=== PATIENT | female | born 1970 | race Caucasian/White ===

== ENCOUNTER 2018-12-09 09:22 | Inpatient (IN) ==
[2018-12-09] MEDS ORDERED: SODIUM CHLORIDE 0.9% INJ ONE ×2 (10:16→10:20)
[2018-12-09] MEDS ORDERED: ZOFRAN IV ONE (10:18)
[2018-12-09] MEDS ORDERED: D5 1/2 NS + KCL 40 MEQ 1,000 ML IV ONE (10:22)
[2018-12-09] MEDS ORDERED: PROTONIX IV SCH (10:30)
[2018-12-09] MEDS: PHENERGAN IV PRN ×3 (10:44→18:52)
--- NOTE | 2018-12-09 10:46 | Diag Imaging Result Doc PS360 ---
EXAM: FLAT/UPRIGHT ABD/1 VIEW CHEST - 12/09/2018 HISTORY: nausea and vomiting TECHNIQUE: Supine and upright abdomen and one view chest COMPARISON: 10/23/2018 KUB abdomen, 10/18/2018 portable chest FINDINGS: The bowel gas pattern appears nonspecific and nonobstructive. There is no free air identified. There are surgical clips at the right upper quadrant and midabdomen. Upright chest shows normal heart size. The lungs appear clear. There is chronic blunting of the left costophrenic sulcus. There is no acute pleural effusion or pneumothorax identified. There are old left mid rib fracture deformities noted. IMPRESSION: Nonspecific bowel gas pattern. No evidence of acute cardiopulmonary disease. Electronically signed by Shahid Whitehead 12/09/2018 10:43 AM
--- NOTE | 2018-12-09 11:31 | ED EKG INTERP ---
EKG Interpretation - EKG Time of EKG reading by physician:: 10:38 EKG Read and Signed by:: Antony Ventura EKG Interpretation (*Must complete 3 of following elements*): Abnormal Rate: 89 Rhythm: NSR [place]: normal QRS: LVH (minimal voltage criteria), other (R atrial enlargement) TN Interval: normal ST Wave: depressed (junctional) Attestation - Physician/ LUIS Attestation Patient care was provided by Advanced Practice Provider:: No The physician spent face to face time with patient:: No Advanced Practice Provider documentation review:: Supervising physician onsite and consulted in the evaluation and care of this patient. The physician did not have a face to face encounter with the patient.
[2018-12-09 11:50] LABS: BASO# 0.01 X1000 (0.0-0.2); BASO% 0.1 % (0.0-0.8); EOS# 0.01 X1000 (0.0-0.7); EOS% 0.1 % (0.0-10.0); HEMATOCRIT 44.2 % (37.0-47.0); HEMOGLOBIN 15.2 g/dL (12.0-16.0); IMM GRAN# 0.03 X1000 (0.0-0.04); IMM GRAN% 0.2 % (0.0-0.5); LYMPH# 2.79 X1000 (1.2-3.4); LYMPH% 17.1 % (20.5-51.1); MCH 29.5 PG (27-31); MCHC 34.4 g/dL (33-37); MCV 85.7 FL (81-99); MONO# 0.66 X1000 (0.11-0.59); MONO% 4.1 % (1.7-9.3); MPV 10.9 FL (7.4-10.4); NEUT# 12.79 X1000 (1.4-6.5); NEUT% 78.4 % (42.2-75.2); PLT 291 X1000 (130-400); RBC 5.16 XMIL (4.2-5.4); RDW 14.8 % (11.5-14.5); WBC 16.29 X1000 (4.8-10.8)
[2018-12-09] MEDS ORDERED: SODIUM CHLORIDE 0.9% INJ PRN (12:00)
[2018-12-09] MEDS: MORPHINE IV PRN ×6 (12:09→23:20)
[2018-12-09 12:10] LABS: AGAP 18; ALB/GLOB RATIO 1.4; ALBUMIN 4.4 g/dL (3.5-5.0); ALKALINE PHOSPHATASE 159 U/L (32-104); BUN 23 mg/dL (8-22); CALCIUM 9.3 mg/dL (8.8-10.2); CHLORIDE 98 mmol/L (98-107); COSMO 279; CREATININE 0.7 mg/dL (0.5-0.9); ESTIMATED GFR > 60; GLUCOSE 100 mg/dL (70-104); GOT 37 U/L (10-30); GPT 53 U/L (10-36); POTASSIUM 3.2 mmol/L (3.5-5.1); SODIUM 138 mmol/L (136-145); TCO2 22 mmol/L (25-35); TOTAL PROTEIN 7.5 g/dL (6.3-8.3)
[2018-12-09] MEDS: D5 1/2 NS + KCL 20 MEQ 1,000 ML IV SCH ×2 (12:10→21:09)
[2018-12-09] MEDS: KEFZOL 1 GM/D5W 1 GM/50 ML IVPB IV SCH ×2 (12:21→21:09)
[2018-12-09] MEDS: ZOFRAN IV PRN ×2 (17:05→21:10)
--- NOTE | 2018-12-09 20:13 | GENERAL SURGERY CONSULTATION ---
DATE: 12/09/2018 HISTORY OF PRESENT ILLNESS: A 48-year-old female patient of Dr. Foster's, also known to Dr. Guan, who underwent a mesenteric bypass for chronic mesenteric ischemia on October 30. She had a long hospital course and has been overall doing okay. She has been home, but developed some back pain, nausea, decreased appetite and bringing her back to the emergency department where she was found to be quite dehydrated. She is hemodynamically stable. No fevers. She is tachycardic initially, with fluids it decreased down to 85. MEDICAL HISTORY: Peripheral vascular disease, mesenteric ischemia, hypertension, chronic tobacco use. SURGICAL HISTORY: Cholecystectomy as well as an aorta to SMA bypass and aorta to celiac bypass. SOCIAL HISTORY: Tobacco use. FAMILY HISTORY: Reviewed, noncontributory. REVIEW OF SYSTEMS: 10 point negative other than HPI PHYSICAL EXAMINATION: Vital Signs: This morning temp was 99.3, pulse 88, blood pressure 160/94. Oxygen saturation 97%. She is approx 100 pounds, or 5 feet 4 inches. General: She is alert, no acute distress. HEENT: There is no scleral icterus. No cervical mass. Cardiovascular: Normal rate. Pulmonary: No increased work of breathing. Abdomen: Soft, nontender, nondistended. Midline incision is well healed. Integument: Warm, dry. Musculoskeletal: Significant cachexia. LABORATORY: White count 16, hematocrit 44, platelets 29,000. Creatinine is 0.7 with an elevated BUN at 23, bilirubin 0.90. AST, ALT and alkaline phosphatase mildly elevated at 37, 53 and 159. Albumin is 4.1. She has a plain film abdominal x-ray that shows no free air. No obvious bowel obstruction. ASSESSMENT AND PLAN: A 48-year-old female with status post mesenteric bypass. She is presenting back now with dehydration. Her abdominal exam is benign. She is hemodynamically stable. She does look hemoconcentrated on her exam. We will follow up from a vascular standpoint. Dr. Guan plans to hydrate her and obtain a scan in the near future. I will let Dr. Foster know, he will be back tomorrow. Otherwise, we will keep her n.p.o., IV hydration. She has had what sounds like normal bowel function leading up to this. cc: MD Didier Stewart, MD [facility]
[2018-12-10] MEDS: MORPHINE IV PRN ×10 (03:08→23:55)
[2018-12-10] MEDS: SODIUM CHLORIDE 0.9% INJ PRN ×4 (03:09→16:59)
[2018-12-10] MEDS: PHENERGAN IV PRN ×5 (03:09→21:14)
[2018-12-10 03:22] LABS: URINE SOURCE CLEAN CATCH
[2018-12-10] MEDS: KEFZOL 1 GM/D5W 1 GM/50 ML IVPB IV SCH ×3 (04:04→20:40)
[2018-12-10 04:28] LABS: BILIRUBIN URINE NEGATIVE (NEGATIVE); BLOOD URINE NEGATIVE (NEGATIVE); COLOR YELLOW; GLUCOSE URINE NEGATIVE (NEGATIVE); KETONE URINE TRACE mg/dL (NEGATIVE); LEUKOCYTES URINE NEGATIVE (NEGATIVE); NITRITE URINE NEGATIVE (NEGATIVE); PROTEIN URINE NEGATIVE (NEGATIVE); SP GRAVITY URINE 1.007; TURBIDITY URINE CLEAR (CLEAR); UROBILINOGEN URINE NORMAL (NORMAL)
[2018-12-10 04:29] LABS: URINE WBC <10 /HPF (<10)
[2018-12-10 04:30] LABS: UR EPITHELIAL CELLS <10 /HPF (<10); URINE BACTERIA NEGATIVE /HPF; URINE RBC <10 /HPF (<10)
[2018-12-10] MEDS: PROTONIX PO SCH ×2 (05:46→06:38)
[2018-12-10] MEDS: ZOFRAN IV PRN ×5 (05:46→23:55)
[2018-12-10] MEDS: D5 1/2 NS + KCL 20 MEQ 1,000 ML IV SCH ×2 (06:14→14:43)
--- NOTE | 2018-12-10 07:06 | EKG Report ---
Test Performed on : 12/09/2018 10:38:22 AM Test Reason : nausia and vomiting Blood Pressure : / mmHG Vent. Rate : 089 BPM Atrial Rate : 089 BPM P-R Int : 112 ms QRS Dur : 070 ms QT Int : 382 ms P-R-T Axes : 082 001 020 degrees QTc Int : 464 ms Normal sinus rhythm. Right atrial enlargement Minimal voltage criteria for LVH, may be normal variant Junctional ST depression, probably abnormal Abnormal ECG When compared with ECG of 17-OCT-2018 14:04, ST now depressed in Inferior leads Nonspecific T wave abnormality now evident in Inferior leads Unconfirmed Result
--- NOTE | 2018-12-10 12:32 | Diag Imaging Result Doc PS360 ---
EXAM: CT ABD/PELVIS W/PO AND IV CON 12/10/2018 HISTORY: back and abd abd pain TECHNIQUE: This exam was performed using automated exposure control, adjustment of mA or kV according to patient size, and/or use of iterative reconstruction technique. COMMENT: There is a fibrotic scar in the lateral costophrenic sulcus of the left lower lobe. This was present at the time the previous study of 10/23/2018. There are some atherosclerotic calcifications in the abdominal aorta and iliac arteries. There is no evidence of aneurysm. There is a patent graft between the infrarenal abdominal aorta and the superior mesenteric artery. The proximal [place] superior mesenteric artery is occluded. There is also an apparent graft between the upper abdominal aorta and the splenic artery through which there is filling of the celiac, as the ostium of the celiac artery is also apparently occluded. This graft is also patent. The inferior mesenteric artery is apparently patent. Both common iliac arteries are patent. There is mucosal thickening of the ascending colon, the transverse colon and the upper descending colon. This was not clearly the case at the time the previous study. Pelvis: There is stool in the rectosigmoid colon. There is no evidence of free fluid. There is a cyst in the right ovary measuring 1.6 cm. There is a pelvic kidney on the left. 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 There is no evidence of acute bony abnormality. IMPRESSION: Patent grafts supplying the celiac and superior mesenteric arteries. Apparent colitis which may, nevertheless,be related to ischemia. Otherwise stable since 10/23/2018. Electronically signed by Duke Rosenberg 12/10/2018 12:30 PM
--- NOTE | 2018-12-10 16:16 | GENERAL SURGERY PROGRESS NOTE ---
DATE: 12/10/2018 Ms. Mccormick was admitted with some nausea/vomiting and some back pain. She is afebrile with stable hemodynamics. Her white count is 16,,300. AST, ALT, alkaline phosphatase are all mildly elevated. Her CTA shows patent grafts to her celiac branches as well as her SMA. There is apparent mucosal thickening in her colon. She appears to have colitis. Her grafts, however, are patent. I did not have any recommendations regarding her flow. I will continue to empirically treat her for colitis and see if she will not improve after appropriate antibiotic therapy. She may come to colonoscopy. cc: MD Didier aEson MD
[2018-12-10] MEDS: FLAGYL 500 MG/NS 500 MG/100 ML IVPB IV SCH ×2 (16:59→21:14)
[2018-12-10] MEDS: NORCO-5 PO PRN (22:23)
[2018-12-11] MEDS: D5 1/2 NS + KCL 20 MEQ 1,000 ML IV SCH ×2 (01:59→06:42)
[2018-12-11] MEDS: MORPHINE IV PRN ×10 (01:59→22:42)
[2018-12-11] MEDS: PHENERGAN IV PRN ×5 (02:00→20:34)
[2018-12-11] MEDS: NORCO-5 PO PRN ×2 (03:15→19:48)
[2018-12-11] MEDS: FLAGYL 500 MG/NS 500 MG/100 ML IVPB IV SCH ×4 (03:16→22:00)
[2018-12-11] MEDS: ZOFRAN IV PRN ×5 (04:04→22:42)
[2018-12-11] MEDS: KEFZOL 1 GM/D5W 1 GM/50 ML IVPB IV SCH ×3 (04:04→20:34)
[2018-12-11] MEDS: PROTONIX PO SCH (06:26)
[2018-12-11 06:50] LABS: AGAP 9; ALB/GLOB RATIO 1.5; ALBUMIN 3.3 g/dL (3.5-5.0); ALKALINE PHOSPHATASE 108 U/L (32-104); BUN 4 mg/dL (8-22); CHLORIDE 110 mmol/L (98-107); COSMO 279; CREATININE 0.7 mg/dL (0.5-0.9); ESTIMATED GFR > 60; GLUCOSE 89 mg/dL (70-104); GOT 23 U/L (10-30); GPT 31 U/L (10-36); SODIUM 142 mmol/L (136-145); TCO2 23 mmol/L (25-35); TOTAL BILIRUBIN 0.19 mg/dL (0.20-1.00); TOTAL PROTEIN 5.5 g/dL (6.3-8.3)
[2018-12-11 06:57] LABS: BASO# 0.02 X1000 (0.0-0.2); BASO% 0.3 % (0.0-0.8); EOS# 0.42 X1000 (0.0-0.7); EOS% 5.6 % (0.0-10.0); HEMATOCRIT 36.6 % (37.0-47.0); HEMOGLOBIN 12.2 g/dL (12.0-16.0); LYMPH# 2.57 X1000 (1.2-3.4); MCH 30.2 PG (27-31); MCHC 33.3 g/dL (33-37); MCV 90.6 FL (81-99); MONO# 0.63 X1000 (0.11-0.59); MONO% 8.3 % (1.7-9.3); MPV 11.5 FL (7.4-10.4); NEUT# 3.92 X1000 (1.4-6.5); NEUT% 51.8 % (42.2-75.2); PLT 195 X1000 (130-400); RBC 4.04 XMIL (4.2-5.4); RDW 14.9 % (11.5-14.5); WBC 7.56 X1000 (4.8-10.8)
[2018-12-11] MEDS: D5 1/2 NS + KCL 30 MEQ 1,000 ML IV SCH ×2 (10:26→19:53)
--- NOTE | 2018-12-11 19:29 | GASTROENTEROLOGY CONSULTATION ---
DATE: 12/11/2018 REASON FOR CONSULT: Colitis, nausea, vomiting, diarrhea. HISTORY OF PRESENT ILLNESS: Ms. Davion Mccormick is a 48-year-old woman with past medical history of GERD, hypertension, peptic ulcer disease, tobacco abuse, who was recently admitted in October of this year and found to have chronic mesenteric ischemia, status post open superior mesenteric artery bypass and aortic to celiac artery bypass who presents with 5 days of intractable nausea, vomiting and fever of 200 degrees at home. She reports associated lower abdominal cramping and developed nonbloody diarrhea today. She says her emesis has been nonbloody. She denies any sick contacts, changes in her diet or medications that may of aggravated her symptoms. Her nausea and vomiting has improved since being admitted with antiemetics including Phenergan and Zofran. She says since her surgery, her abdominal pain from her surgery has been slowly improving. She was gaining weight until her symptoms started this past . REVIEW OF SYSTEMS: The rest of her GI systems is negative. PAST MEDICAL HISTORY: As per HPI. PAST SURGICAL HISTORY: SMA and celiac bypass, cholecystectomy. SOCIAL HISTORY: She quit smoking cigarettes now vapes at this point. No alcohol or drug use. FAMILY HISTORY: She says her brother had colon cancer. Father may have had colon cancer. Her last colonoscopy was in 2018. MEDICATIONS: She is on Protonix, Tylenol, and [place]. She was on a 30 day course of Plavix, which she completed. ALLERGIES: No allergies to medications. PHYSICAL EXAMINATION: Vital Signs: Temperature of 98.2, heart rate of 70, respiratory rate 16, blood pressure 125/62, O2 saturation 100% on room air. General: The patient is awake, alert, oriented, in no acute distress. She looks like she has gained some weight since the last time I saw her. Well-nourished. HEENT: Sclerae anicteric. Moist mucous membranes. Neck: No JVD or lymphadenopathy. Cardiac: Regular rate and rhythm. No murmurs, rubs, or gallops. Lungs: Clear to auscultation bilaterally. No wheezing. Abdomen: Postsurgical scars well healed. Abdomen is nondistended. Normoactive bowel sounds. No rebound or guarding. Minimal tenderness throughout. No ascites. Extremities: No clubbing, cyanosis, or edema. Neurologic: Nonfocal. LABORATORY DATA: White count on presentation was 16.2, currently 7.5, hemoglobin of 12.2 from 15.2 on admission, platelets of 195,000. Sodium 142, potassium of 3.0, chloride of 110, bicarbonate 23, BUN of 4, creatinine 0.7. LFTs, total bilirubin 0.19, AST of 323, ALT of 31, alkaline phosphatase of 108, total protein of 5.5, albumin 3.3. UA is negative IMAGING: Abdominal x-ray shows nonspecific bowel gas pattern. CT of the abdomen and pelvis with p.o. and IV contrast shows patent grafts supplying the celiac and superior mesenteric arteries. Apparent colitis in the ascending, transverse and upper descending colon that was not seen on prior study. Stool, clostridium difficile is negative. ASSESSMENT AND PLAN: Ms. Davion Mccormick is a 48-year-old woman with past medical history of peptic ulcer disease, gastroesophageal reflux disease, tobacco abuse, peripheral artery disease, history of chronic mesenteric ischemia, status post celiac and SMA bypass, who presents with acute onset nausea, vomiting, diarrhea concerning for probable gastroenteritis. Her white count was elevated on presentation, which is now improved. Her clostridium difficile is negative. Her abdomen is benign. Vital signs are stable. Her symptoms have improved with antiemetics as well as antibiotics. She is on cefazolin and Flagyl for nausea and vomiting. Continue antiemetics for diarrhea. Follow up stool studies. Continue Flagyl for now. Consider changing cefazolin to Cipro. Can transition to oral medications. Advance diet as tolerated. Replete electrolytes. Intravenous fluids. Thank you for this consult. We will follow with you. Please call with any questions or concerns. cc: Didier Guan MD
[2018-12-12] MEDS: MORPHINE IV PRN ×8 (01:18→21:35)
[2018-12-12] MEDS: NORCO-5 PO PRN ×3 (01:19→21:35)
[2018-12-12] MEDS: PHENERGAN IV PRN ×4 (01:19→18:54)
[2018-12-12] MEDS: ZOFRAN IV PRN ×4 (03:36→21:35)
[2018-12-12] MEDS: FLAGYL 500 MG/NS 500 MG/100 ML IVPB IV SCH ×4 (03:37→21:36)
[2018-12-12] MEDS: KEFZOL 1 GM/D5W 1 GM/50 ML IVPB IV SCH ×3 (04:41→21:36)
[2018-12-12] MEDS: D5 1/2 NS + KCL 30 MEQ 1,000 ML IV SCH (06:24)
[2018-12-12] MEDS: PROTONIX PO SCH (06:25)
[2018-12-12 09:28] LABS: AGAP 9; BUN 3 mg/dL (8-22); CALCIUM 7.2 mg/dL (8.8-10.2); CHLORIDE 111 mmol/L (98-107); COSMO 278; CREATININE 0.7 mg/dL (0.5-0.9); ESTIMATED GFR > 60; GLUCOSE 95 mg/dL (70-104); POTASSIUM 3.3 mmol/L (3.5-5.1); SODIUM 141 mmol/L (136-145); TCO2 21 mmol/L (25-35)
[2018-12-12] MEDS: SODIUM CHLORIDE 0.9% INJ PRN ×2 (12:18→18:56)
--- NOTE | 2018-12-12 23:03 | PROVIDER PROGRESS NOTE ---
Progress Note No acute overnight events. Nausea controlled. Abdominal pain improved. No diarrhea, rectal bleeding, vomiting, fever, melena. Tolerating diet OBJECTIVE: Last Vital Signs Temp 98.6 F 12/12/18 20:00 Pulse 68 12/12/18 20:00 Resp 18 12/12/18 20:00 BP 119/75 12/12/18 20:00 Pulse Ox 100 12/12/18 20:00 Height 5 ft 4 in Weight 97 lb GEN: awake, alert, NAD, sitting in chair HEENT: anicteric, MMM NECK: supple, no JVD CV: RRR, no murmurs PULM: CTAB, no wheezing ABD: soft ND, mild TTP throughout, NABS EXT: no cce NEURO: nonfocal LABS: 12/12/18 05:00 Sodium 141 Potassium 3.3 L Chloride 111 H Carbon Dioxide 21 L BUN 3 L Creatinine 0.7 Glucose 95 A/P: Ms. Davion Mccormick is a 48-year-old woman with past medical history of peptic ulcer disease, gastroesophageal reflux disease, tobacco abuse, peripheral artery disease, history of chronic mesenteric ischemia, status post celiac and SMA bypass, who presents with acute onset nausea, vomiting, diarrhea concerning for probable gastroenteritis that is improving. # Gastroenteritis: improving; she is on empiric antibiotics; can complete 5 day course with oral therapy # Nausea: continue antiemetics # History of chronic mesenteric ischemia: s/p surgery; noted Will sign off. Please call with questions. Follow-up with Dr. Franklin upon discharge.
[2018-12-13] MEDS: PHENERGAN IV PRN ×2 (00:41→05:28)
[2018-12-13] MEDS: MORPHINE IV PRN ×4 (00:41→07:41)
[2018-12-13] MEDS: NORCO-5 PO PRN (03:17)
[2018-12-13] MEDS: FLAGYL 500 MG/NS 500 MG/100 ML IVPB IV SCH ×2 (03:17→08:00)
[2018-12-13] MEDS: ZOFRAN IV PRN ×2 (03:17→07:41)
[2018-12-13] MEDS: KEFZOL 1 GM/D5W 1 GM/50 ML IVPB IV SCH (04:25)
[2018-12-13] MEDS: PROTONIX PO SCH ×2 (04:26→07:36)
[2018-12-13 07:31] VITALS: BP 102/64
[2018-12-13] MEDS: D5 1/2 NS + KCL 30 MEQ 1,000 ML IV SCH (07:46)
== END 2018-12-13 09:46 | disposition home or self-care (01) | DRG 641 ==
LOC: ED 09:22 → 4N 10:41
PROVIDERS: ADMIT Surgery; ATTEND Surgery
CPT/HCPCS: 74022; 74177; 80048; 80053; 81001; 85025; 87324; 93005; 96374; 96375; 99285; A9270; C9113; J0690; J2270; J2405; J2550; J3480; Q9967; S0030; S0164